=== PATIENT | male | born 1970 | race Caucasian/White ===

== ENCOUNTER → 2016-05-11 | Outpatient (CLI) | payer BC | LOC: MW.MNT 08:54 | PROVIDERS: ATTEND Nurse Practitioner Adult Health | DX: E66.9 Obesity, unspecified (principal); I10 Essential (primary) hypertension; Z71.3 Dietary counseling and surveillance | CPT/HCPCS: 97802 ==

== ENCOUNTER 2022-01-07 18:39 | Emergency (ER) | payer BC | END 2022-01-07 20:00 | disposition left against medical advice (07) | LOC: MW.ED 18:39 | DX: Z53.21 Procedure and treatment not carried out due to patient leaving prior to being seen by health care provider (principal) ==

== ENCOUNTER 2023-07-20 06:51 | Day surgery (SDC) | payer BC ==
[~2023-07-20 06:51] MED LIST: Acetaminophen 1,000 MG in Premix Bag 1 BAG IV SCH; ceFAZolin 2 GM in Sodium Chloride 0.9% 50 ML IV ONE
[2023-07-20] MEDS ORDERED: Ropivacaine 0.5% 5 MG/ML 30 ML SDV ONE (07:26)
[2023-07-20] MEDS ORDERED: Bupivacaine 0.5% 30 ML SDV ONE (07:26)
[2023-07-20] MEDS: Lactated Ringers 1,000 ML IV SCH (07:27)
[2023-07-20] MEDS: Pregabalin 75 MG Cap PO SCH (07:30)
[2023-07-20] MEDS ORDERED: Propofol 200 MG/20 ML SDV ONE (07:32)
[2023-07-20] MEDS ORDERED: fentaNYL 250 MCG/5 ML SDV ONE (07:32)
[2023-07-20] MEDS ORDERED: Rocuronium Bromide 50 MG/5 ML Syringe ONE (07:33)
[2023-07-20] MEDS ORDERED: Morphine 10 MG/ML SDV ONE (07:33)
[2023-07-20] MEDS ORDERED: Morphine 2 MG/ML SYRINGE IVPUSH PRN (07:35)
[2023-07-20] MEDS ORDERED: Naloxone 0.4 MG/ML SDV IVPUSH PRN (07:35)
[2023-07-20] MEDS ORDERED: Metoclopramide 10 MG/2 ML SDV IVPUSH PRN (07:35)
[2023-07-20] MEDS ORDERED: droPERidol 5 MG/2 ML SDV IVPUSH PRN (07:35)
[2023-07-20] MEDS ORDERED: HYDROmorphone 1 MG/ML Syringe IVPUSH PRN (07:35)
[2023-07-20] MEDS ORDERED: fentaNYL 50 MCG/ML SDV IVPUSH PRN (07:35)
[2023-07-20] MEDS ORDERED: Albuterol 0.083% 2.5 MG/3 ML Neb Soln NEB PRN (07:35)
[2023-07-20] MEDS ORDERED: Ondansetron 4 MG/2 ML SDV IVPUSH PRN (07:35)
[2023-07-20] MEDS ORDERED: dexmedeTOMIDine HCl 200 MCG/2 ML SDV ONE (07:36)
[2023-07-20] MEDS ORDERED: Water For Injection, Sterile 20 ML ONE (07:36)
[2023-07-20] MEDS ORDERED: Water For Injection, Sterile 40 ML ONE (07:38)
[2023-07-20] MEDS ORDERED: Lidocaine 2% 11 ML Jelly Filled Syringe ONE (07:41)
[2023-07-20] MEDS ORDERED: Ketamine HCL/NACL, ISO-OSM 50 MG/5 ML Syringe ONE (07:57)
[2023-07-20] MEDS ORDERED: ceFAZolin 2 GM Vial ONE (08:08)
[2023-07-20] MEDS ORDERED: ceFAZolin 1 GM Vial ONE (08:08)
[2023-07-20] MEDS ORDERED: Phenylephrine HCl In 0.9% NaCl 1 MG/10 ML Syringe ONE ×2 (08:24→09:38)
[2023-07-20] MEDS ORDERED: fentaNYL 100 MCG/2 ML SDV ONE (08:54)
[2023-07-20] MEDS ORDERED: Famotidine 20 MG/2 ML SDV ONE (09:32)
[2023-07-20] MEDS ORDERED: Ketorolac 30 MG/ML SDV ONE (09:38)
[2023-07-20] MEDS ORDERED: Ondansetron 4 MG/2 ML SDV ONE (09:38)
[2023-07-20] MEDS ORDERED: ePHEDrine 50 MG/ML SDV ONE (09:38)
[2023-07-20] MEDS ORDERED: Sugammadex Sodium 200 MG/2 ML VIAL IV ONE (09:38)
[2023-07-20] MEDS ORDERED: Dexamethasone 4 MG/ML 5 ML MDV ONE (09:38)
== END 2023-07-20 12:00 | disposition home or self-care (01) ==
LOC: MW.SDS 06:51
PROVIDERS: ATTEND Surgery
DX: K80.10 Calculus of gallbladder with chronic cholecystitis without obstruction (principal); K82.8 Other specified diseases of gallbladder; I10 Essential (primary) hypertension; K21.9 Gastro-esophageal reflux disease without esophagitis; E78.00 Pure hypercholesterolemia, unspecified; Z79.899 Other long term (current) drug therapy
CPT/HCPCS: 47563; A9270; J0131; J0665; J0690; J1100; J1885; J2270; J2371; J2405; J2704; J2795; J3010; J3490; J7120; 00790

== ENCOUNTER 2023-10-21 06:24 | Day surgery (SDC) | payer BC ==
[2023-10-21] MEDS: Lactated Ringers 1,000 ML IV SCH (06:47)
[2023-10-21] MEDS ORDERED: propofoL 50 ML ONE (07:28)
[2023-10-21] MEDS ORDERED: Ketamine HCL/NACL, ISO-OSM 50 MG/5 ML Syringe ONE (07:57)
[2023-10-21] MEDS ORDERED: Propofol 200 MG/20 ML SDV ONE ×2 (08:14→09:45)
== END 2023-10-21 09:30 | disposition home or self-care (01) ==
LOC: MW.SDS 06:24
PROVIDERS: ATTEND Surgery
DX: K22.70 Barrett's esophagus without dysplasia (principal); K31.89 Other diseases of stomach and duodenum; K62.5 Hemorrhage of anus and rectum; K21.9 Gastro-esophageal reflux disease without esophagitis; K64.8 Other hemorrhoids; E78.5 Hyperlipidemia, unspecified; I10 Essential (primary) hypertension; E66.9 Obesity, unspecified; G47.33 Obstructive sleep apnea (adult) (pediatric); Z79.899 Other long term (current) drug therapy; Z68.35 Body mass index [BMI] 35.0-35.9, adult
CPT/HCPCS: 43239; 45380; J2704; J7120; 00813; J3490

== ENCOUNTER 2024-05-08 19:30 | Emergency (ER) | payer BC, OTHER ==
[2024-05-08] MEDS ORDERED: Sodium Chloride 0.9% 2.5 ML Syringe FLUSH PRN (20:40)
[2024-05-08] MEDS ORDERED: Sodium Chloride 0.9% 10 ML Syringe FLUSH PRN (20:40)
[2024-05-08] MEDS: Ketorolac 30 MG/ML SDV IVPUSH STA (22:08)
[2024-05-08] MEDS: Sodium Chloride 0.9% 1,000 ML IV STA (22:08)
[2024-05-08] MEDS: Alum Hydrox/Mag Hydrox/Simeth 15 ML, Lidocaine 2% 5 ML PO STA (22:08)
[2024-05-08] MEDS: Ondansetron 4 MG/2 ML SDV IVPUSH STA (22:08)
[2024-05-08 22:36] LABS: BASOPHILS ABSOLUTE AUTO 0.03 K/uL (0.00-0.20); BASOPHILS PERCENT AUTO 0.3 % (0.0-1.0); EOSINOPHILS ABSOLUTE AUTO 0.15 K/uL (0.00-0.45); EOSINOPHILS PERCENT AUTO 1.7 % (0.0-6.0); HEMATOCRIT 44.3 % (42.0-52.0); HEMOGLOBIN 15.3 g/dL (14.0-18.0); IMMATURE GRAN ABSOLUTE AUTO 0.02 K/uL (0.00-0.05); IMMATURE GRAN PERCENT AUTO 0.2 % (0.0-0.4); LYMPHOCYTES ABSOLUTE AUTO 1.62 K/uL (1.00-4.80); LYMPHOCYTES PERCENT AUTO 17.8 % (24.0-44.0); MEAN CORPUSCULAR HEMOGLOBIN 28.6 pg (28.0-32.0); MEAN CORPUSCULAR HGB CONC 34.5 g/dL (32.0-36.0); MEAN CORPUSCULAR VOLUME 82.8 fL (83.0-99.0); MEAN PLATELET VOLUME 10.8 fL (9.4-12.4); MONOCYTES ABSOLUTE AUTO 0.56 K/uL (0.00-0.80); MONOCYTES PERCENT AUTO 6.2 % (0.0-8.0); NEUTROPHILS ABSOLUTE AUTO 6.71 K/uL (1.80-7.70); NEUTROPHILS PERCENT AUTO 73.8 % (41.0-71.0); PLATELET COUNT,PLT 175 K/uL (150-400); RED BLOOD CELL COUNT 5.35 M/uL (4.52-5.90); WHITE BLOOD CELL COUNT,WBC 9.09 K/uL (3.9-11.3)
[2024-05-08 22:59] LABS: A/G RATIO 1.1 (0.9-1.6); ALBUMIN 3.9 g/dL (3.4-5.0); BILIRUBIN TOTAL 1.2 mg/dL (0.2-1.0); CALCIUM 8.6 mg/dL (8.5-10.1); CARBON DIOXIDE,CO2 23.1 mmol/L (21.0-32.0); CREATININE 0.8 mg/dL (0.8-1.3); EST CRCL DRUG DOSING (CG) 113.73 mL/min; POTASSIUM,K 3.8 mmol/L (3.5-5.1); PROTEIN TOTAL,TP 7.5 g/dL (6.4-8.2)
== END 2024-05-08 23:48 | disposition home or self-care (01) ==
LOC: MW.ED 19:30
DX: R10.11 Right upper quadrant pain (principal); I10 Essential (primary) hypertension; K21.9 Gastro-esophageal reflux disease without esophagitis; E78.00 Pure hypercholesterolemia, unspecified; E66.9 Obesity, unspecified; Z79.899 Other long term (current) drug therapy; Z90.49 Acquired absence of other specified parts of digestive tract; Z68.34 Body mass index [BMI] 34.0-34.9, adult
CPT/HCPCS: 36415; 76705; 76705-26; 80053; 83690; 85025; 99284